=== PATIENT | female | born 1955 | race Caucasian/White ===

== ENCOUNTER 2021-09-17 10:17 | Emergency (ER) | payer MEDICARE ==
[~2021-09-17] VITALS: Ht 152.4 cm; Wt 63.5 kg
[2021-09-17 10:45] VITALS: BP_SYST 146
[2021-09-17] MEDS ORDERED: LIDOCAINE 1%, 20 ML MDV 20 ML ONE (12:29)
[2021-09-17] MEDS ORDERED: HYDROcodone/ACETAMIN 10-325 MG TAB PO ONE (13:15)
[2021-09-17] MEDS ORDERED: NAPR-690 PO (13:46)
== END 2021-09-17 14:00 | disposition home or self-care (01) ==
LOC: SED 10:17
DX: S56.121A Laceration of flexor muscle, fascia and tendon of right index finger at forearm level, initial encounter (principal); X58.XXXA Exposure to other specified factors, initial encounter; Y93.89 Activity, other specified; Y92.89 Other specified places as the place of occurrence of the external cause; Y99.8 Other external cause status
CPT/HCPCS: 99283; 12001; 96372; J2001